=== PATIENT | male | born 1970 | race Caucasian/White ===

== ENCOUNTER 2018-12-12 18:02 | Emergency (ER) | payer BC, OTHER ==
[2018-12-12 18:23] VITALS: TEMP 98.3; BMI 35.7
--- NOTE | 2018-12-12 18:33 | PDOC ---
History of Present Illness - General Chief Complaint: Syncope/Near Syncope Stated Complaint: SYNCOPE Time Seen by Provider: 12/12/18 18:33 History Source: Patient Exam Limitations: No Limitations - History of Present Illness Initial Comments: 48 year old male with no PMH presented to ED for syncopal episode starting 1730 today. Pt reported he was at a restaurant sitting in a chair, felt lightheaded, then his helped lower him to the ground as he passed out. reported he awoke <1 minute, but then had two episodes of shaking of his upper extremities. EMS was called, when they arrived pt reported another episode of lightheadedness , they lowered him to the ground and EMS reported his HR was in the 20s for 30 seconds, then increased back to the 70s. Pt denied chest pain, shortness of breath, fever, vomiting, abdominal pain, back pain, diarrhea, room spinning. Pt reported he has felt today's symptoms one time prior x2 year ago, it self resolved and he did not seek Emergency Medical attention, follow up with his PCP , who advised no workup/treatment. Pt reported he is taking Doxycyline PO and drops for his recent left eye infection. Past History - Past Medical History Allergies/Adverse Reactions: Allergies Allergy/AdvReac Type Severity Reaction Status Date / Time Penicillins Allergy Severe Rash Verified 12/12/18 18:23 Home Medications: Ambulatory Orders NK [No Known Home Medication] 12/12/18 COPD: No - Surgical History Gastric Stapling: Yes (2010) - Suicide/Smoking/Psychosocial Hx Smoking History: Never smoked Have you smoked in the past 12 months: No Information on smoking cessation initiated: No Hx Alcohol Use: No Drug/Substance Use Hx: No Substance Use Type: None Review of Systems - Review of Systems Able to Perform ROS?: Yes Comments:: General: denied fever, chills, generalized weakness. HEENT: denied sore throat, rhinorrhea, ear pain. Cardiovascular: admitted to lightheadedness, syncope. denied chest pain, palpitations, diaphoresis. Respiratory: denied shortness of breath, cough, sputum production, hemoptysis. Gastrointestinal: denied abdominal pain, nausea, vomiting, diarrhea, constipation, blood in stool. Genitourinary: denied dysuria, increased urinary frequency, hematuria, urinary incontinence, flank pain. Back: denied back pain. Musculoskeletal: denied joint pain, muscle pain, joint swelling. Neurological: denied headache, dizziness, numbness, tingling, weakness. Integumentary: denied rash, laceration, abrasion. Hematologic/Lymphatic: denied bruising or bleeding. *Physical Exam - Vital Signs Last Vital Signs Temp Pulse Resp BP Pulse Ox 98.3 F 70 18 110/72 96 12/12/18 18:09 12/12/18 18:09 12/12/18 18:09 12/12/18 18:09 12/12/18 18:09 - Physical Exam Comments: Constitutional: Well-nourished, Well-developed, appearing stated age. HEENT: head is normocephalic, atraumatic. EOMI. PERRLA. left eye erythematous, swollen periorbital area, with normal EOM, no pain with EOM. Neck: supple. Full ROM. Cardiovascular: regular heart rhythm. no murmurs. no pericardial friction rub. Respiratory: clear to auscultation bilaterally. no crackles, rhonchi or wheezing. no stridor. Gastrointestinal: soft, nontender. normal bowel sounds. no rebound, guarding, masses. Extremities: peripheral pulses intact. no lower extremity edema. Neurological: CN 2-12 grossly intact. moves all four extremities. Psych: awake, alert, oriented x3. follows commands. answers questions appropriately. ED Treatment Course - LABORATORY CBC & Chemistry Diagram: 12/12/18 18:50 12/12/18 18:50 Medical Decision Making - Medical Decision Making 48 year old male with above PMH BIBA to ED for witnessed syncopal episode, witnessed bradycardia by EMS in the 20s. Pt and who witnessed syncopal episode denied head injury. Initial Vital Signs Temp Pulse Resp BP Pulse Ox 98.3 F 70 18 110/72 96 12/12/18 18:09 12/12/18 18:09 12/12/18 18:09 12/12/18 18:09 12/12/18 18:09 Afebrile. No tachycardia. No tachypnea. No hypotension. No hypoxia on room air. Labs ordered: CBC, CMP, trop, mag, TSH, lactate Imaging ordered: none Medications ordered: normal saline bolus 1000 cc once EKG performed at 1814: rate 67, regular rhythm, normal axis, normal intervals, no acute ST changes. 12/12/18 19:49 CBC WBC 6.5 K/mm3 (4.0-10.0) 12/12/18 18:50 RBC 4.71 M/mm3 (4.00-5.60) 12/12/18 18:50 Hgb 15.1 GM/dL (11.7-16.9) 12/12/18 18:50 Hct 44.3 % (35.4-49) 12/12/18 18:50 MCV 94.1 fl (80-96) 12/12/18 18:50 MCH 32.1 pg (25.7-33.7) 12/12/18 18:50 MCHC 34.1 g/dl (32.0-35.9) 12/12/18 18:50 RDW 12.7 % (11.9-15.9) 12/12/18 18:50 Plt Count 239 K/MM3 (134-434) 12/12/18 18:50 MPV 7.8 fl (7.5-11.1) 12/12/18 18:50 Absolute Neuts (auto) 4.2 K/mm3 (1.5-8.0) 12/12/18 18:50 Neutrophils % 64.7 % (42.8-82.8) D 12/12/18 18:50 Lymphocytes % 17.7 % (8-40) D 12/12/18 18:50 Monocytes % 11.7 % (3.8-10.2) H 12/12/18 18:50 Eosinophils % 4.7 % (0-4.5) H 12/12/18 18:50 Basophils % 1.2 % (0-2.0) 12/12/18 18:50 Nucleated RBC % 0 % (0-0) 12/12/18 18:50 No leukocytosis. No anemia. 12/12/18 20:11 CMP Sodium 139 mmol/L (136-145) 12/12/18 18:50 Potassium 3.7 mmol/L (3.5-5.1) 12/12/18 18:50 Chloride 105 mmol/L (98-107) 12/12/18 18:50 Carbon Dioxide 26 mmol/L (21-32) 12/12/18 18:50 Anion Gap 9 MMOL/L (8-16) 12/12/18 18:50 BUN 10.1 mg/dL (7-18) 12/12/18 18:50 Creatinine 0.8 mg/dL (0.55-1.3) 12/12/18 18:50 Est GFR (CKD-EPI)AfAm 124.16 12/12/18 18:50 Est GFR (CKD-EPI)NonAf 107.13 12/12/18 18:50 Random Glucose 101 mg/dL (74-106) 12/12/18 18:50 Lactic Acid 3.5 mmol/L (0.4-2.0) H* 12/12/18 19:05 Calcium 8.7 mg/dL (8.5-10.1) 12/12/18 18:50 Magnesium 2.3 mg/dL (1.8-2.4) 12/12/18 18:50 Total Bilirubin 0.4 mg/dL (0.2-1) 12/12/18 18:50 AST 21 U/L (15-37) 12/12/18 18:50 ALT 30 U/L (13-61) 12/12/18 18:50 Alkaline Phosphatase 86 U/L (45-117) 12/12/18 18:50 Troponin I < 0.02 ng/ml (0.00-0.05) 12/12/18 18:50 Total Protein 6.9 g/dl (6.4-8.2) 12/12/18 18:50 Albumin 3.8 g/dl (3.4-5.0) 12/12/18 18:50 TSH 2.58 uIU/ml (0.358-3.74) 12/12/18 18:50 No electrolyte abnormalities. No JACKIE. Lactic acidosis No transaminitis. Troponin wnl TSH wnl Will give additional liter of normal saline after 1st finishes and repeat Lactate. 12/12/18 22:06 Repeat lactate 3.1 Downtrending lactate. Pt discharged. Pt given cardio referral. *DC/Admit/Observation/Transfer Diagnosis at time of Disposition: Syncope - Discharge Dispostion Disposition: HOME Condition at time of disposition: Stable Decision to Admit order: No - Referrals Referrals: ON STAFF,NOT [Primary Care Provider] - Tanner Rodriguez MD [Staff Physician] - Jadon Lyons MD [Staff Physician] - Kevin Peterson MD [Staff Physician] - Diony Neff MD [Staff Physician] - - Patient Instructions Printed Discharge Instructions: DI for Syncope in Adults (Fainting) Additional Instructions: Follow up with your primary care doctor within 3 days. Your care is not complete until you follow up. Bring all paperwork given to you today to your appointment. Follow up with a civil engineer within 3 days. Your care is not complete until you follow up. I have provided you with multiple referrals. Return to the Emergency Department for lightheadedness, passing out, chest pain , shortness of breath, abdominal pain, fever, vomiting, numbness, weakness, tingling, changes to speech, changes to vision or any other new, worsening or concerning symptoms. - Post Discharge Activity Forms/Work/School Notes: Back to Work
[2018-12-12] MEDS ORDERED: SODIUM CHLORIDE 1,000 ML IV STA ×2 (18:34→20:14)
[2018-12-12 19:17] LABS: BASO % 1.2 % (0-2.0); EOS % 4.7 % (0-4.5); HEMATOCRIT 44.3 % (35.4-49); HEMOGLOBIN 15.1 GM/dL (11.7-16.9); LYMPH % 17.7 % (8-40); MCH 32.1 pg (25.7-33.7); MCHC 34.1 g/dl (32.0-35.9); MEAN CELL VOLUME 94.1 fl (80-96); MEAN PLT VOLUME 7.8 fl (7.5-11.1); MONO % 11.7 % (3.8-10.2); NEUT % 64.7 % (42.8-82.8); PLATELET COUNT 239 K/MM3 (134-434); RBC 4.71 M/mm3 (4.00-5.60); RDW 12.7 % (11.9-15.9); WHITE BLOOD COUNT 6.5 K/mm3 (4.0-10.0)
[2018-12-12 19:37] LABS: INR 0.97 (0.83-1.09); PROTHROMBIN TIME (PATIENT) 11.5 SEC (9.7-13.0)
[2018-12-12 19:54] LABS: ALBUMIN 3.8 g/dl (3.4-5.0); ALK PHOS 86 U/L (45-117); ANION GAP 9 MMOL/L (8-16); BILIRUBIN,TOTAL 0.4 mg/dL (0.2-1); BLOOD UREA NITROGEN 10.1 mg/dL (7-18); CALCIUM 8.7 mg/dL (8.5-10.1); CHLORIDE 105 mmol/L (98-107); CO2 26 mmol/L (21-32); CREATININE 0.8 mg/dL (0.55-1.3); GLUCOSE,RANDOM 101 mg/dL (74-106); POTASSIUM 3.7 mmol/L (3.5-5.1); SGOT/AST 21 U/L (15-37); SGPT/ALT 30 U/L (13-61); SODIUM 139 mmol/L (136-145); TOT PROT 6.9 g/dl (6.4-8.2)
--- NOTE | 2018-12-12 20:10 | PDOC ---
Documentation entered by Rolando Espinoza SCRIBE, acting as scribe for Junior Li MD. Junior Li MD: This documentation has been prepared by the Alexis mcclellan Daniel, SCRIBE, under my direction and personally reviewed by me in its entirety. I confirm that the documentation accurately reflects all work, treatment, procedures, and medical decision making performed by me. Attending Attestation - Resident Resident Name: Krupa Antonio - ED Attending Attestation I have performed the following: I have examined & evaluated the patient, The case was reviewed & discussed with the resident, I agree w/resident's findings & plan, Exceptions are as noted - HPI HPI: 12/12/18 19:41 The patient is a 48 year old male with no past medical history here today for evaluation of syncope. The patient reports that he was sitting down for dinner at a restaurant when he felt lightheaded like he was about to pass. reports that she helped the patient to the ground after he became unresponsive and began to shake. reports that the patient was passed out for approximately 2 minutes and then woke up. Rapidly returned to baseline and began asking what happened. Patient denies any tongue bite or urinary incontinence. Patient states that he became lightheaded again when he was being evaluated by EMS. As per EMS, the patients heart rate was in the 20s while he was lightheaded and then returned to normal. Patient denies headache. Denies fever, chills. Denies chest pain, shortness of breath. Denies nausea, vomiting, diarrhea, abdominal pain. Denies lower extremity edema. Denies urinary symptoms. No BRBPR, melanotic stool. No hx seizures. No family members with early unexplained or cardiac abnormalities. Allergies: penicillins Social history: Patient confirms social drinking and denies any tobacco or illicit drug use. PCP: not on staff 12/12/18 20:08 12/12/18 20:09 - Physicial Exam PE: 12/12/18 19:41 No lower extremity edema. Moist mucous membranes. No conjunctiva pallor. Heart regular rate and rhythm with no murmurs. - Medical Decision Making 12/12/18 20:09 low risk syncope in healthy male with no comorbidities likely vasovagal labs fsg EKG if workup neg can f/u outpt with PCP
[2018-12-12 22:20] VITALS: BP 112/74; PULSE 70
--- NOTE | 2018-12-13 10:32 | EKG ---
Test Reason : Blood Pressure : / mmHG Vent. Rate : 067 BPM Atrial Rate : 067 BPM P-R Int : 140 ms QRS Dur : 088 ms QT Int : 416 ms P-R-T Axes : 035 046 035 degrees QTc Int : 439 ms NORMAL SINUS RHYTHM NORMAL ECG WHEN COMPARED WITH ECG OF 25-DEC-2015 21:33, NO SIGNIFICANT CHANGE WAS FOUND Confirmed by AKIL WALKER MD ([id number]) on 12/13/2018 10:32:06 AM Referred By: Confirmed By:AKIL WALKER MD
== END 2018-12-12 22:20 | disposition home or self-care (01) ==
LOC: JER 18:02
PROC: 3E0337Z Introduction of Electrolytic and Water Balance Substance into Peripheral Vein, Percutaneous Approach (ICD-10-PCS; principal; 2018-12-12)
DX: R55 Syncope and collapse (principal)
CPT/HCPCS: 36415; 80053; 83605; 83735; 84443; 84484; 85025; 85610; 93005; 93010; 99285-25; J7030

== ENCOUNTER 2021-01-05 19:43 | Emergency (ER) | payer BC, OTHER ==
[2021-01-05 19:57] VITALS: BP 121/82; PULSE 96; TEMP 98.6; BMI 32.1
[2021-01-05] MEDS ORDERED: DIPHTH,PERTUSS(ACELL),TET 0.5 ML DISP.SYRIN IM ONE ×2 (20:59→21:47)
== END 2021-01-05 22:35 | disposition home or self-care (01) ==
LOC: JERFT 19:43
PROC: 0HQGXZZ Repair Left Hand Skin, External Approach (ICD-10-PCS; principal; 2021-01-05)
PROC: 3E0234Z Introduction of Serum, Toxoid and Vaccine into Muscle, Percutaneous Approach (ICD-10-PCS; 2021-01-05)
DX: S61.211A Laceration without foreign body of left index finger without damage to nail, initial encounter (principal); W25.XXXA Contact with sharp glass, initial encounter; Y92.9 Unspecified place or not applicable
CPT/HCPCS: 73140-TC-LT-FY; 90715; 99284-25

== ENCOUNTER 2023-02-09 07:26 | Day surgery (SDC) | payer BC, OTHER ==
[2023-02-06 16:30] VITALS: BMI 34.2
[2023-02-09] MEDS ORDERED: EPINEPHrine 1:1,000 1,000 MCG/ML ML ONE (07:45)
[2023-02-09] MEDS ORDERED: ROPIVACAINE HCL 0.5% 30ML VIAL ONE (10:06)
[2023-02-09] MEDS ORDERED: MIDAZOLAM HCL 2 MG/2 ML SINGLE DOSE VIAL ONE ×2 (10:06)
[2023-02-09] MEDS ORDERED: FENTANYL CITRATE/PF 50 MCG/ML VIAL ONE (10:06)
[2023-02-09] MEDS ORDERED: LIDOCAINE HCL 1%, 10 MG/ML (20ML VIAL) ONE (10:29)
[2023-02-09] MEDS ORDERED: ceFAZolin SODIUM 1 GM VIAL ONE (10:37)
[2023-02-09] MEDS ORDERED: ONDANSETRON 4 MG/2 ML VIAL ONE (10:37)
[2023-02-09] MEDS ORDERED: GLYCOPYRROLATE 0.2 MG/1 ML VIAL ONE (10:37)
[2023-02-09] MEDS ORDERED: ONDANSETRON 4 MG/2 ML VIAL IVPUSH PRN (11:33)
[2023-02-09] MEDS ORDERED: oxyCODONE HCL 5 MG TABLET PO PRN ×2 (11:34)
[2023-02-09] MEDS ORDERED: ACETAMINOPHEN 1000 MG/100 ML BAG IVPB ONE (11:34)
[2023-02-09] MEDS ORDERED: LACTATED RINGERS SOLUTION 1,000 ML IV SCH (11:45)
[2023-02-09 12:23] VITALS: TEMP 97.4
[2023-02-09 13:23] VITALS: BP 124/86; PULSE 88; RESP 16
[2023-02-09] MEDS ORDERED: ACETAMINOPHEN 500 MG TABLET (FP) PO SCH (18:00)
== END 2023-02-09 13:15 | disposition home or self-care (01) ==
LOC: FASU 07:26
PROVIDERS: ATTEND Orthopaedic Surgery
PROC: 0LM24ZZ Reattachment of Left Shoulder Tendon, Percutaneous Endoscopic Approach (ICD-10-PCS; 2023-02-09)
PROC: 0RNK4ZZ Release Left Shoulder Joint, Percutaneous Endoscopic Approach (ICD-10-PCS; 2023-02-09)
PROC: 0LB24ZZ Excision of Left Shoulder Tendon, Percutaneous Endoscopic Approach (ICD-10-PCS; principal; 2023-02-09 10:45)
DX: M75.122 Complete rotator cuff tear or rupture of left shoulder, not specified as traumatic (principal); M75.02 Adhesive capsulitis of left shoulder; M75.42 Impingement syndrome of left shoulder; M19.012 Primary osteoarthritis, left shoulder; S43.432A Superior glenoid labrum lesion of left shoulder, initial encounter; X58.XXXA Exposure to other specified factors, initial encounter; Y92.9 Unspecified place or not applicable; Y93.9 Activity, unspecified
CPT/HCPCS: 29807; 29823; 29824; 29826; 29827; C1713; 94760